=== PATIENT | female | born 1980 | race Caucasian/White ===

== ENCOUNTER 2020-10-10 11:54 | Emergency (ER) | payer SELFPAY ==
[2020-10-10 12:02] VITALS: BP 116/78; PULSE 100; RESP 14; TEMP 36.3; O2SAT 99
[2020-10-10] MEDS: METOCLOPRAMIDE HCL INJ 10 MG/2 ML VIAL IV PUSH (13:00)
[2020-10-10] MEDS: FAMOTIDINE 20 MG/2 ML VIAL IV PUSH (13:00)
[2020-10-10] MEDS: LACTATED RINGERS 1,000 ML 999 ML IV CONT (13:00)
[2020-10-10] MEDS: diphenhydrAMINE HCl INJ 50 MG/ML VIAL 25 MG IV PUSH (13:00)
[2020-10-10] MEDS: KETOROLAC 30 MG/ML VIAL (*BKC) IV PUSH (13:01)
--- NOTE | 2020-10-10 14:46 | ED.GENADULT ---
HPI - General Adult General Chief complaint: Headache Stated complaint: headache Time Seen by Provider: 10/10/20 12:17 Source: patient Mode of arrival: ambulatory Limitations: no limitations History of Present Illness HPI narrative: Patient with history of migraine headaches presenting with typical migraine with nausea vomiting dry retching patient tried her home medications with minimal improvement patient presents uncomfortable but not in distress patient denies diarrhea vaginal complaints or URI symptoms Related Data Allergies Allergy/AdvReac Type Severity Reaction Status Date / Time azithromycin AdvReac Vomiting Verified 10/10/20 12:07 morphine AdvReac Anxiety Verified 10/10/20 12:07 Review of Systems Review of Systems: All systems reviewed & are unremarkable except as noted in HPI and below PMFSH Past Medical History Medical History Migraine headache Social History Social History (Updated 10/10/20 @ 14:56 by Aditya Blanca PA-C) Smoking status: Never smoker Exam Narrative: Exam Narrative: GENERAL: Well-appearing, well-nourished, and in no acute distress. HEAD: Normocephalic, atraumatic. EYES: PERRLA and EOMI. ENT: Nares clear, no rhinorrhea or epistaxis. Mucous membranes moist. CHEST: Clear to auscultation. No respiratory distress. No wheezes rales or rhonchi HEART: Regular rate and rhythm. No murmur heard. EXTREMITIES: Normal range of motion. No edema. SKIN: Warm, dry, no rash. NEURO: No focal deficits. Alert and oriented x3. Cranial nerves II through XII grossly intact PSYCH: Normal mood and affect. Course Course Emergency Course: Patient medicated emergency department with improvement of symptoms will be discharged home feeling better at this time Vital Signs Vital signs: Vital Signs Temperature 97.4 F L 10/10/20 12:02 Pulse Rate 100 10/10/20 12:02 Respiratory Rate 14 10/10/20 12:02 Blood Pressure 116/78 10/10/20 12:02 Pulse Oximetry 99 10/10/20 12:02 Temperature 97.4 F L 10/10/20 12:02 Pulse Rate 100 10/10/20 12:02 Respiratory Rate 14 10/10/20 12:02 Blood Pressure 116/78 10/10/20 12:02 Pulse Oximetry 99 10/10/20 12:02 Medical Decision Making MDM Narrative Medical decision making narrative: Patients headache was not sudden or maximal in onset. There are no focal neurological deficits on exam. Subarachnoid hemorrhage is felt to be unlikey at this time. There is no history of fever, and neck is supple without meningismus, making meningitis unlikely. No traumatic history or signs of trauma on exam. No risk factors for CVA, risk factors reviewed. NO ocular signs on exam and in history to suggest acute glaucoma. Patients headache is felt to be a reasonable candidate for outpatient evaluation Vital Signs Vital Signs: Vital Signs Temperature 97.4 F L 10/10/20 12:02 Pulse Rate 100 10/10/20 12:02 Respiratory Rate 14 10/10/20 12:02 Blood Pressure 116/78 10/10/20 12:02 Pulse Oximetry 99 10/10/20 12:02 Temperature 97.4 F L 10/10/20 12:02 Pulse Rate 100 10/10/20 12:02 Respiratory Rate 14 10/10/20 12:02 Blood Pressure 116/78 10/10/20 12:02 Pulse Oximetry 99 10/10/20 12:02 Discharge Plan Discharge Clinical Impression: Migraine Patient Disposition: Home, Self-Care Condition: Stable Instructions: Antibiotic Form, Migraine Headache (ED) Additional Instructions: Follow up with your primary care doctor in 5-7 days for re-evaluation. Go to ER for worsening pain, vision changes, nausea/vomiting, fever/chills, weakness, chest pain, shortness of breath, numbness/tingling, slurred speech, difficulty walking, change in mental status etc. or any other concerns. Stay well-hydrated Take any prescribed medications as directed. Prescriptions: New ondansetron 4 mg tablet,disintegrating 4 mg PO Q6H PRN (Reason: nausea and vomiting) Qty: 7 RF: 0 Foll
[2020-10-10 15:08] VITALS: BP 105/67; PULSE 62; RESP 16; TEMP 37.3; O2SAT 100
== END 2020-10-10 15:17 | disposition home or self-care (01) ==
PROVIDERS: Emergency Provider Emergency Medicine
DX: G43.909 Migraine, unspecified, not intractable, without status migrainosus (principal)
CPT/HCPCS: 96374; 96375; 99284; J1200; J1885; J2765; J7120